=== PATIENT | male | born 1980 | race Caucasian/White ===

== ENCOUNTER 2025-05-29 18:57 | Inpatient (IN) | payer OTHER ==
[~2025-05-29] VITALS: Ht 172.7 cm; Wt 163.3 kg
[2025-05-29 19:12] VITALS: O2SAT 96
[2025-05-29 19:48] LABS: BASOPHILS % 0.7 % (0.0-2.0); EOSINOPHILS % 5.5 % (0.0-5.0); HEMATOCRIT. 40.5 % (42.0-52.0); HEMOGLOBIN. 13.3 g/dL (14.0-18.0); LYMPHOCYTES % 13.9 % (20.0-50.0); MEAN PLATELET VOLUME 7.4 fl (7.4-10.4); MONOCYTES % 7.3 % (2.0-8.0); NEUTROPHILS % 72.6 % (40.0-76.0); PLATELET 394 x1000/uL (130-400); RED BLOOD CELL COUNT 4.85 mill/uL (4.7-6.1); RED CELL DISTRIBUTION WIDTH 15.8 % (11.6-14.6)
[2025-05-29 20:01] LABS: CREATININE 0.8 mg/dL (0.6-1.3); UREA NITROGEN BLOOD 13 mg/dL (9-23)
[2025-05-29 20:03] LABS: ASPARTATE AMINOTRANSFERASE 19 IU/L (<34); BILIRUBIN DIRECT < 0.1 mg/dL (<=3.0); BILIRUBIN TOTAL < 0.2 mg/dL (0.1-1.0); PROTEIN TOTAL 7.0 g/dL (6.0-8.3)
[2025-05-29 20:29] LABS: TROPONIN I HIGH SENSITIVITY 56 ng/L (3.0-53)
[2025-05-29] MEDS ORDERED: ONDANSETRON HCL 4MG/2ML INJ IV PRN (22:00)
[2025-05-29] MEDS ORDERED: ZOLPIDEM TARTRATE 5MG TABLET PO PRN (22:00)
[2025-05-29] MEDS ORDERED: MAGNESIUM/ALUMINUM HYDROXIDE/SIMETHICONE 30ML UDC PO PRN (22:00)
[2025-05-29] MEDS ORDERED: NALOXONE HCL 0.4MG/ML VIAL IV PRN (22:00)
[2025-05-29] MEDS ORDERED: ACETAMINOPHEN 325MG TABLET PO PRN (22:00)
[2025-05-29] MEDS: ASPIRIN 81MG EC TABLET PO ONE (22:26)
[2025-05-29] MEDS: CLONIDINE 0.1MG TABLET PO PRN (22:26)
[2025-05-29 22:55] LABS: TROPONIN I HIGH SENSITIVITY 56 ng/L (3.0-53)
[2025-05-29 23:04] LABS: BG DEOXYHEMOGLOBIN 7.2 % (0.0-5.0)
[2025-05-29] MEDS: LABETALOL 5MG/ML 4ML INJ IV NR (23:28)
[2025-05-29] MEDS: CEFTRIAXONE 1GM/50ML 50 ML IV SCH (23:30)
[2025-05-29] MEDS: IOHEXOL-350 100 ML BOTTLE ONE (23:37)
[2025-05-29] MEDS: AMLODIPINE 5MG TABLET PO SCH (23:39)
[2025-05-30] VITALS (14 sets, daily range): BP systolic 129–172; BP diastolic 59–107; PULSE 69–107; RESP 14–40; TEMP 36.5–37.5; O2SAT 88–98
[2025-05-30 00:51] LABS: BG BASE EXCESS 1.8 mmol/L (-2.0-3.0); BG CARBOXYHEMOGLOBIN 0.7 % (0.5-1.5); BG DEOXYHEMOGLOBIN 6.6 % (0.0-5.0); BG FRACTION INSPIRED OXYGEN 21; BG HCO3 ACT 28.2 mmol/L (21.0-28.0); BG METHEMOGLOBIN 0.0 % (0.5-1.5); BG OXYGEN SATURATION 93.4 % (94.0-98.0); BG OXYHEMOGLOBIN 92.7 % (94.0-98.0); BG PCO2 51.3 mmHg (35.0-48.0); BG PH 7.358 (7.350-7.450); BG PO2 71.8 mmHg (83.0-108.0); BG SAMPLE SITE RIGHT RADIAL; BG TOTAL HEMOGLOBIN 14.3 g/dL (13.5-17.5); BG VENT MODE ROOM AIR
[2025-05-30 07:14] LABS: BG BASE EXCESS 2.7 mmol/L (-2.0-3.0); BG CARBOXYHEMOGLOBIN 0.8 % (0.5-1.5); BG DEOXYHEMOGLOBIN 6.5 % (0.0-5.0); BG FRACTION INSPIRED OXYGEN 21; BG HCO3 ACT 27.2 mmol/L (21.0-28.0); BG METHEMOGLOBIN 0.3 % (0.5-1.5); BG OXYGEN SATURATION 93.4 % (94.0-98.0); BG OXYHEMOGLOBIN 92.4 % (94.0-98.0); BG PCO2 41.8 mmHg (35.0-48.0); BG PH 7.432 (7.350-7.450); BG PO2 70.2 mmHg (83.0-108.0); BG SAMPLE SITE RIGHT RADIAL; BG TOTAL HEMOGLOBIN 14.2 g/dL (13.5-17.5); BG VENT MODE ROOM AIR
[2025-05-30 08:05] LABS: CREATININE 0.8 mg/dL (0.6-1.3); TROPONIN I HIGH SENSITIVITY 43 ng/L (3.0-53); UREA NITROGEN BLOOD 15 mg/dL (9-23)
[2025-05-30 08:20] LABS: BASOPHILS % 0.5 % (0.0-2.0); EOSINOPHILS % 4.5 % (0.0-5.0); HEMATOCRIT. 40.3 % (42.0-52.0); HEMOGLOBIN. 13.0 g/dL (14.0-18.0); LYMPHOCYTES % 17.8 % (20.0-50.0); MEAN PLATELET VOLUME 7.7 fl (7.4-10.4); MONOCYTES % 6.7 % (2.0-8.0); NEUTROPHILS % 70.5 % (40.0-76.0); PLATELET 364 x1000/uL (130-400); RED BLOOD CELL COUNT 4.82 mill/uL (4.7-6.1); RED CELL DISTRIBUTION WIDTH 15.8 % (11.6-14.6)
[2025-05-30] MEDS: PANTOPRAZOLE SODIUM 40 MG/VIAL IV SCH (08:43)
[2025-05-30] MEDS: ENOXAPARIN 40MG/0.4ML SYR SUBCUT SCH (08:44)
[2025-05-30] MEDS: HYDRALAZINE 20MG/ML VIAL IV PRN (13:12)
[2025-05-30] MEDS: LOSARTAN 50 MG TABLET PO SCH (14:18)
[2025-05-30 15:06] LABS: CLARITY URINE CLEAR (CLEAR); COLOR URINE YELLOW (YELLOW); GLUCOSE URINE NEGATIVE (NEGATIVE); KETONES URINE TRACE (NEGATIVE); LEUKOCYTE ESTERASE URINE NEGATIVE (NEGATIVE); NITRITE URINE NEGATIVE (NEGATIVE); OCCULT BLOOD URINE NEGATIVE (NEGATIVE); PH URINE 5.5 (4.5-8.0); PROTEIN URINE TRACE (NEGATIVE); SPECIFIC GRAVITY URINE 1.034 (1.005-1.030); UROBILINOGEN URINE 0.2 E.U./dL (0.2-1.0)
[2025-05-30 15:23] LABS: *AMPHETAMINES SCREEN URINE NEGATIVE (NEGATIVE); *BARBITURATES SCREEN URINE NEGATIVE (NEGATIVE); *BENZODIAZEPINES SCREEN URINE NEGATIVE (NEGATIVE); *COCAINE SCREEN URINE PRESUMPTIVE POSITIVE (NEGATIVE); CANNABINOID URINE SCREEN NEGATIVE (NEGATIVE); ECSTASY MDMA SCREEN URINE NEGATIVE (NEGATIVE); METHADONE URINE SCREEN NEGATIVE (NEGATIVE); OPIATES URINE SCREEN NEGATIVE (NEGATIVE); PHENCYCLIDINE URINE SCREEN NEGATIVE (NEGATIVE)
[2025-05-30 15:26] LABS: MUCUS URINE TRACE /lpf (NONE/TRACE); SQUAMOUS EPITHELIAL CELL URINE RARE /lpf (RARE/1+)
[2025-05-30 15:27] LABS: BACTERIA URINE 1+
[2025-05-30 15:28] LABS: RBC URINE NONE SEEN /hpf (0-2); WBC URINE 0-2 /hpf (0-2)
[2025-05-30] MEDS: HYDRALAZINE HCL 25MG TABLET PO SCH (21:45)
[2025-05-30] MEDS: CEFTRIAXONE 1GM/50ML 50 ML IV SCH (21:47)
[2025-05-30] MEDS: HYDROCODONE/ACETAMINOPHEN 5/325MG TABLET PO PRN (21:54)
[2025-05-30 22:16] LABS: TROPONIN I HIGH SENSITIVITY 37 ng/L (3.0-53)
[2025-05-30 22:32] LABS: TRIGLYCERIDE 140.0 mg/dL (0-150)
[2025-05-30 22:33] LABS: LDL CHOLESTEROL 115.0 mg/dL (5-100)
[2025-05-31] VITALS: BP 141/83; PULSE 82; RESP 13; TEMP 37.5
[2025-05-31 00:02] VITALS: RESP 19
[2025-05-31 01:00] VITALS: BP 148/92; PULSE 87; RESP 14; TEMP 97.8
== END 2025-05-31 01:30 | disposition short-term general hospital (02) | DRG 304 ==
LOC: ER 18:57 → 5EST 21:19 → EDBEDREQ 21:20 → EDBEDREQTM 21:20 → ENRESERV 21:34 → EDBEDREQSVC 23:17 → ENRESERV 23:29
PROVIDERS: ADMIT Internal Medicine; ATTEND Internal Medicine
PROC: 5A09357 Assistance with Respiratory Ventilation, Less than 24 Consecutive Hours, Continuous Positive Airway Pressure (ICD-10-PCS; principal; 2025-05-30)
DX: I16.1 Hypertensive emergency (principal); G93.41 Metabolic encephalopathy; J96.22 Acute and chronic respiratory failure with hypercapnia; E66.2 Morbid (severe) obesity with alveolar hypoventilation; Z68.43 Body mass index [BMI] 50.0-59.9, adult; R55 Syncope and collapse; F19.90 Other psychoactive substance use, unspecified, uncomplicated; L83 Acanthosis nigricans; F12.90 Cannabis use, unspecified, uncomplicated; I10 Essential (primary) hypertension; Z86.16 Personal history of COVID-19
CPT/HCPCS: 36415; 36600; 71045; 71275; 74174; 80048; 80061; 80076; 80305; 81003; 82375; 82803; 82805; 83036; 84443; 84484; 85025; 93005; 93880; 93970; 94070; 94660; 94664; 99291; A4606; J0360; J0696; J1650; J2470; J3490; Q9967